=== PATIENT | male | born 1970 | race Caucasian/White ===

== ENCOUNTER 2021-12-23 20:51 | Emergency (ER) | payer MEDICAID ==
[~2021-12-23] VITALS: Ht 188 cm; Wt 120.2 kg
[2021-12-23 20:51] VITALS: BP 142/80
[2021-12-24 00:04] VITALS: BP 136/82
--- NOTE | 2021-12-24 00:04 | NUR ---
Patient discharged with v/s stable. Written and verbal after care instructions given and explained. Patient verbalized understanding. Ambulatory with steady gait. All questions addressed prior to discharge. Advised to follow up with PMD.
== END 2021-12-24 00:04 | disposition home or self-care (01) ==
LOC: MED 20:51
DX: S92.354A Nondisplaced fracture of fifth metatarsal bone, right foot, initial encounter for closed fracture (principal); Z88.1 Allergy status to other antibiotic agents; X58.XXXA Exposure to other specified factors, initial encounter; Y93.89 Activity, other specified; Y92.89 Other specified places as the place of occurrence of the external cause; Y99.8 Other external cause status
CPT/HCPCS: 73630; 99283